=== PATIENT | male | born 1985 | race Caucasian/White ===

== ENCOUNTER 2022-04-08 10:14 | Emergency (ER) | payer BC ==
[2022-04-08] MEDS ORDERED: Ondansetron PF 4 MG/2 ML Vial ONE (10:35)
[2022-04-08] MEDS ORDERED: Morphine 4 MG/ML VIAL ONE (10:35)
[2022-04-08] MEDS ORDERED: Diazepam 10 MG/2 ML SYRINGE ONE (10:37)
[2022-04-08] MEDS ORDERED: Ketorolac Tromethamine 30 MG/ML VIAL ONE (11:43)
== END 2022-04-08 12:37 | disposition home or self-care (01) ==
LOC: EDSEX 10:14 → CSHERS 10:14
DX: M54.50 Low back pain, unspecified (principal); F17.290 Nicotine dependence, other tobacco product, uncomplicated
CPT/HCPCS: 96374; 96375; J1885; J2270; J2405; J3360